=== PATIENT | female | born 1990 | race American Indian/Alaskan Native ===

== ENCOUNTER 2020-10-22 11:51 | Emergency (ER) | payer OTHER ==
[2020-10-22 12:02] VITALS: BP 120/79
--- NOTE | 2020-10-22 14:25 | Event Note ---
ED Screening Note Date of service: 10/22/20 Time: 14:24 ED Screening Note: 30-year-old female patient presents to the emergency department via EMS with complaints of visual disturbance starting today. Patient states she is "seeing white spots" from both eyes. Her employer sent her to the emergency department for further evaluation. Patient states she had issues with blood pressure during her last , several years ago, but was never diagnosed with preeclampsia. Her last menstrual cycle was at the end of August. No recent fall, trauma, or injury. General: Awake, appropriately interactive, no acute distress. Eyes: PERRL. EOMI. No nystagmus. Neck: Supple. Full range of motion intact. Cardiovascular: Normal peripheral perfusion. Pulmonary: No respiratory distress. Patient is speaking normally without use of accessory muscles. Skin: No apparent rashes or lesions. Neurological: No facial asymmetry. Speech is clear. Follows commands. Patient is alert and oriented. Musculoskeletal: Moves all four extremities spontaneously with normal range of motion. Psych: Cooperative. Appropriate mood and affect. I have greeted and performed a focused rapid initial assessment of this patient. A comprehensive ED assessment and evaluation of the patient, analysis of all test results, and completion of the medical decision-making process will be conducted by additional ED providers. This initial assessment/diagnostic orders/clinical plan/treatment(s) is/are subject to change based on patients health status, clinical progression and re-assessment. Further treatment and workup at subsequent clinical provider's discretion. Patient/guardian urged not to elope from the ED as their condition may be serious if not clinically assessed and managed.
[2020-10-22 15:21] LABS: Basophils # (Auto) 0.1 K/mm3 (0.0-0.1); Basophils % (Auto) 1.4 % (0.0-1.8); Eosinophils # (Auto) 0.2 K/mm3 (0.0-0.4); Eosinophils % (Auto) 3.4 % (0.0-4.3); Hematocrit 37.5 % (30.3-42.9); Hemoglobin 12.9 gm/dl (10.1-14.3); Lymphocytes # (Auto) 2.1 K/mm3 (1.2-5.4); Lymphocytes % (Auto) 43.1 % (13.4-35.0); Mean Corpuscular HGB Conc 34 % (30-34); Mean Corpuscular Volume 95 fl (79-97); Monocytes # (Auto) 0.6 K/mm3 (0.0-0.8); Monocytes % (Auto) 12.4 % (0.0-7.3); Platelet Count 231 K/mm3 (140-440); Red Blood Count 3.94 M/mm3 (3.65-5.03); Red Cell Distribution Width 12.5 % (13.2-15.2)
[2020-10-22 15:41] LABS: Alanine Aminotransferase 17 units/L (7-56); Albumin 4.4 g/dL (3.9-5); Blood Urea Nitrogen 12 mg/dL (7-17); Calcium 8.7 mg/dL (8.4-10.2); Hemolysis Index 4
[2020-10-22 16:13] LABS: BUN/Creatinine Ratio 17
[2020-10-22 17:15] LABS: Bilirubin,Urine NEG (Negative); Blood,Urine MOD (Negative); Color,Urine Yellow (Yellow); Protein,Urine <15 mg/dL mg/dL (Negative); Urobilinogen,Urine < 2.0 mg/dL (<2.0); WBC,Urine < 1.0 /HPF (0.0-6.0)
--- NOTE | 2020-10-22 18:03 | Emergency Department Report ---
ED N/V/D HPI - General Chief complaint: Nausea/Vomiting/Diarrhea Stated complaint: NAUSEA/VOMITING/SEE WHITE SPOTS Time Seen by Provider: 10/22/20 16:40 Source: patient Mode of arrival: Ambulatory Limitations: No Limitations - History of Present Illness Initial comments: 30-year-old [place] female presents to the emergency department complaining of eating at [employer] on yesterday after she developed some nausea vomiting abdominal pain. She attempted to vomit to expel the contents that she thought was causing some of her symptoms however that did not alleviate the nausea vomiting. MD complaint: nausea, vomiting -: Sudden Description of Vomiting: other (Yellow discharge after expelling of food contents) Associated Abdominal Pain: No Radiation: none Severity: mild (States that she is feeling much better) Quality: aching Consistency: other (Reports significant improvement since the onset came to emerge department under the direction of her family to make sure everything was okay) Improves with: none Worsens with: none Context: possible food poisoning Associated Symptoms: denies other symptoms. denies: cough, diaphoresis, loss of appetite, nausea/vomiting - Related Data Previous Rx's Medication Instructions Recorded Last Taken Type Hyoscyamine (Nf) [Levsin ORAL 0.125 mg SL Q4HR PRN #1 bottle 10/22/20 Unknown Rx DROPS] Ondansetron [Zofran Oral Liq] 4 mg PO Q6HR PRN #120 oralsyr 10/22/20 Unknown Rx Allergies Allergy/AdvReac Type Severity Reaction Status Date / Time No Known Allergies Allergy Unverified 10/22/20 11:59 ED Review of Systems ROS: Stated complaint: NAUSEA/VOMITING/SEE WHITE SPOTS Other details as noted in HPI Comment: All other systems reviewed and negative ED Past Medical Hx - Medications Home Medications: Home Medications Medication Instructions Recorded Confirmed Last Taken Type Hyoscyamine (Nf) [Levsin ORAL 0.125 mg SL Q4HR PRN #1 bottle 10/22/20 Unknown Rx DROPS] Ondansetron [Zofran Oral Liq] 4 mg PO Q6HR PRN #120 oralsyr 10/22/20 Unknown Rx ED Physical Exam - General Limitations: No Limitations General appearance: alert, in no apparent distress - Head Head exam: Present: atraumatic, normocephalic - Eye Eye exam: Present: normal appearance, PERRL, EOMI Pupils: Present: normal accommodation - ENT ENT exam: Present: normal exam, normal orophraynx, mucous membranes moist - Neck Neck exam: Present: normal inspection, full ROM - Respiratory Respiratory exam: Present: normal lung sounds bilaterally. Absent: respiratory distress - Cardiovascular Cardiovascular Exam: Present: regular rate, normal rhythm. Absent: systolic murmur, diastolic murmur, rubs, gallop - GI/Abdominal GI/Abdominal exam: Present: soft, normal bowel sounds. Absent: distended, tenderness, guarding, diminished bowel sounds, hyperactive bowel sounds, hypoactive bowel sounds, organomegaly, bruit - Extremities Exam Extremities exam: Present: normal inspection, normal capillary refill - Back Exam Back exam: Present: normal inspection - Neurological Exam Neurological exam: Present: alert, oriented X3 - Psychiatric Psychiatric exam: Present: normal affect, normal mood - Skin Skin exam: Present: warm, dry, intact, normal color. Absent: rash ED Course Vital Signs 10/22/20 12:01 Temperature 97.9 F Pulse Rate 71 Respiratory 16 Rate Blood Pressure 120/79 [Right] O2 Sat by Pulse 100 Oximetry ED Medical Decision Making - Lab Data Result diagrams: 10/22/20 14:58 10/22/20 14:58 - Medical Decision Making Patient presents to the emergency department with nausea, vomiting, diarrhea, differential diagnosis includes possible acute gastroenteritis. Abdominal examination without peritoneal signs. Currently patient is euvolemic without evidence of dehydration. No evidence of surgical abdomen or other acute medical emergency including bowel obstruction, viscus perforation, vascular catastrophe, appendicitis, cholecystitis at this time. Presentation not consistent with other acute emergent causes of vomiting and diarrhea at this time. No indication for abdominal imaging Plan supportive care, oral/IV rehydration, antiemetics and reassess Critical care attestation.: If time is entered above; I have spent that time in minutes in the direct care of this critically ill patient, excluding procedure time. ED Disposition Clinical Impression: Nausea & vomiting Disposition: DC-01 TO HOME OR SELFCARE Is pt being admited?: No Does the pt Need Aspirin: No Condition: Stable Instructions: Viral Gastroenteritis, Adult, Food Choices to Help Relieve Diarrhea, Adult, Nausea and Vomiting, Adult, [id number], Shigellosis, Adult Prescriptions: Hyoscyamine (Nf) [Levsin ORAL DROPS] 0.125 mg SL Q4HR PRN #1 bottle PRN Reason: abdominal cramping and pain Ondansetron [Zofran Oral Liq] 4 mg PO Q6HR PRN #120 oralsyr PRN Reason: Vomiting Referrals: [facility] [Provider Group] - 3-5 Days [facility],MD [Primary Care Provider] - 3-5 Days
== END 2020-10-22 17:34 | disposition home or self-care (01) ==
LOC: ED 11:51
DX: R11.2 Nausea with vomiting, unspecified (principal); Z79.899 Other long term (current) drug therapy
CPT/HCPCS: 36415; 80053; 81001; 83735; 84702; 85025; 99284